=== PATIENT | female | born 1945 | race Caucasian/White ===

== ENCOUNTER 2016-10-08 20:17 | Emergency (ER) | payer MEDICARE, BC ==
[2016-10-08 21:02] LABS: Hematocrit 39.6 % (37.0-47.0); Hemoglobin 13.7 gm/dL (12.5-16.0); Mean Cell Volume 89.4 fl (78-100); Mean Corpuscular Hemoglobin 30.9 pg (27-31); Mean Corpuscular Hgb Conc 34.6 g/dl (32-36); Mean Platelet Volume 8.9 fl (6.0-9.5); Neutrophil # 2.4 K/mm3 (1.3-6.0); Neutrophil % 64.1 % (42-75.0); Platelet Count 209 K/mm3 (150-450); Red Blood Count 4.43 M/mm3 (4.2-5.4); Red Cell Distribution Width 12.1 % (11.5-14.0); White Blood Count 3.7 K/mm3 (4.0-10.5)
--- NOTE | 2016-10-08 21:03 | ERNOTE ---
Medical Problem HPI - Narrative Date of Service: 10/08/16 - General Chief Complaint: General Assessment Time Seen by Provider: 10/08/16 20:51 Source: patient, family - Immun/Allergies/Home Medications Immunizations: IMMUNIZATION HX Immunizations Up to Date Yes History of Influenza Vaccine No Hx Pneumococcal Vaccination Yes Allergies/Adverse Reactions: Allergies venom-honey bee [bee venom (honey bee)] Allergy (Verified 10/08/16 20:25) Swelling (Other) Lower extremity edema morphine Adverse Reaction (Mild, Verified 10/08/16 20:25) Nausea Flushing Home Medications: HOME MEDICATIONS Acetaminophen [Tylenol] 1,300 mg PO BID 01/14/15 [Last Taken Unknown] Triamterene/Hydrochlorothiazid [Maxzide 75 MG/50 MG] 1 tab PO DAILY 01/14/15 [ Last Taken Unknown] Cetirizine HCl [Zyrtec] 10 mg PO DAILY 10/08/16 [Last Taken Unknown] Meloxicam 7.5 mg PO BID 10/08/16 [Last Taken Unknown] Ranitidine HCl [Acid [employer]] 150 mg PO DAILY 10/08/16 [Last Taken Unknown] - History of Present History Narrative: This is a 71-year-old female who comes to the emergency department with concern about her blood pressure. Apparently the patient went for a dental appointment earlier today and had her blood pressure checked. It was elevated at that time and she was told to keep an eye on it. The patient says that when she got home she was feeling exhausted. She says she's been having this for several weeks. She says she does not usually get exhausted so early in the day. She says she decided to take her blood pressure and found it significantly elevated at 190/ 110. He then took it again and it was 200 and something over 120. He had bit of an occipital headache so she decided to come to the emergency department. The patient says that she does not have chest pain with this and no shortness of breath no blurred vision no confusion no numbness or tingling. The patient admits that she has had chest pain intermittently for months. This is actually been going on for years. She has had stress tests for it. Her last episode was within the last 2 weeks. He does not remember any chest pain within the last 3 days. She has no shortness of breath. She has no other complaints Review of Systems - Review of Systems EYE: Present: no symptoms reported ENT: Present: no symptoms reported Respiratory: Present: no symptoms reported Cardiology: Present: no symptoms reported Gastrointestinal/Abdominal: Present: no symptoms reported Genitourinary: Present: no symptoms reported Musculoskeletal: Present: no symptoms reported Skin: Present: no symptoms reported Neurological: Present: no symptoms reported Endocrine: Present: no symptoms reported Hematologic/Lymphatic: Present: no symptoms reported Psych: Present: no symptoms reported All Other Systems: All systems neg except as marked - Patient's Past Medical History Patient History - Medical: Arthritis, GERD Patient History - Cardiac/Respiratory: Hypertension Patient History - Cancer: No Hx of Cancer Patient History - Surgical Procedures: Appendectomy Patient History - Other: None - Family History Father Family History - Medical: , No pertinent hx Family History - Cardiac/Respiratory: Myocardial Infarction Mother Family History - Medical: , No pertinent hx Family History - Cardiac/Respiratory: CHF Sister Family History - Medical: No pertinent hx Family History - Cardiac/Respiratory: No pertinent hx - Social History Living Situations: home Abuse History: No History of abuse Psych History: No pertinent hx Smoking Status: Never smoker Alcohol Use: none Drug Use: none - Immunizations Immunizations Up to Date: Yes Hx Pneumococcal Vaccination: Yes History of Influenza Vaccine: No Physical Exam - Physical Exam General Appearance: Present: wd/wn, alert, no apparent distress Head Exam: Present: normal inspection, no evidence of injury Eye Exam: Normal inspection: bilateral, PERRL: bilateral Ears, Nose, Throat: Present: normal ENT inspection, normal pharynx Neck: Present: normal inspection, nontender, other - patient has some suboccipital spasms in the left paraspinals. Respiratory: Present: no respiratory distress, normal breath sounds, no accessory muscle use, chest nontender, lungs clear Cardiovascular/Chest: Present: regular rate, rhythm, no murmur, normal peripheral pulses Gastrointestinal/Abdominal: Present: normal bowel sounds, nontender, nondistended, soft, no organomegaly Back Exam: Present: normal inspection, normal range of motion, no CVA tenderness Extremity Exam: Present: normal inspection, non-tender, normal range of motion, no edema Neurological Exam: Present: alert, oriented, normal mood/affect, no motor/ sensory deficits Skin Exam: Present: normal color, warm/dry Lymphatic Exam: Present: no adenopathy ED Progress - Results and Orders Patient's Lab Results:: I have reviewed the patient's lab results. - Vital Signs Patient's Vital Signs:: I have reviewed the patient's vital signs. Vital Signs: Vital Signs 10/08/16 10/08/16 20:21 20:39 Temperature 36.5 C Pulse Rate 76 76 Respiratory 18 18 Rate Blood Pressure 205/115 149/98 O2 Sat by Pulse 99 99 Oximetry - EKG EKG: NSR, other EKG read: Interp. by me EKG Comments: Normal sinus rhythm ventricular rate of 65 rightward axis normal intervals frequent premature supraventricular beats were ST segment inversion which is new as compared to EKG from 2015. - Progress/Reassessment Chief Complaint: General Assessment Departure - Departure Clinical Impression: Hypertension Qualifiers: Hypertension type: unspecified Qualified Code(s): I10 - Essential (primary) hypertension Disposition: Home self-care Condition: Stable Instructions: Hypertension, [id number] Additional Instructions: As we discussed, her blood pressure was elevated but it is gone back to essentially normal now. He did have some mild elevation of her blood pressure and I suspect that he will need to have your blood pressure medicine changed. I will call your family doctor, tell them you were seen in the ER, and set up a follow-up appointment. He can take ibuprofen or Tylenol to help with the headaches if they are mild. Next If he develops severe headache, blurred vision, confusion, numbness, tingling, weakness, chest pain, shortness of breath he should return to the emergency room immediately. Return for any new or worrisome symptoms Referrals: Denzel Li MD [Primary Care Provider] -
[2016-10-08 21:25] LABS: ALT 24 U/L (19-67); AST 17 U/L (0-48); Albumin * 3.7 gm/dl (3.4-5.0); Alkaline Phosphatase * 97 U/L (50-170); Anion Gap 10.7 mmol/L (6.8-13.8); BUN/Creatinine Ratio 19.2 (9.0-21.6); Bilirubin, Total 0.3 mg/dL (0.0-1.1); Blood Urea Nitrogen 14 mg/dL (3-23); CKMB 1.1 ng/mL (0.0-9.0); Ca. Corrected For Albumin 9.2 mg/dL (8.4-10.2); Calcium * 9.3 mg/dL (7.9-10.9); Carbon Dioxide 29.9 mmol/L (24-32.6); Chloride 102 mmol/L (97-106); Glucose * 105 mg/dL (70-110); Potassium 3.6 mmol/L (3.4-4.6); Sodium 139 mmol/L (132-142); Total Protein 6.8 gm/dL (6.2-8.2); Troponin I Less than 0.017 ng/ml (0.00-0.10)
[2016-10-08 22:04] VITALS: BP 158/83
== END 2016-10-08 22:03 | disposition home or self-care (01) ==
LOC: ER 20:17
DX: I10 Essential (primary) hypertension (principal); M19.90 Unspecified osteoarthritis, unspecified site; K21.9 Gastro-esophageal reflux disease without esophagitis